=== PATIENT | male | born 1980 | race Caucasian/White ===

== ENCOUNTER 2019-02-22 23:43 | Emergency (ER) | payer SELFPAY ==
--- NOTE | 2019-02-22 00:01 | DI.RAD_ITS ---
EXAM: XR FINGER LT INDEX INDICATION: r/o FB at tip of finger. COMPARISON: No exams were available for comparison TECHNIQUE: 2D digital imaging was performed. FINDINGS: No fracture or dislocation is seen. 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 IMPRESSION: Negative left index finger.
[2019-02-22 23:48] VITALS: BP 127/81; PULSE 69; RESP 16; TEMP 36.6; O2SAT 100
--- NOTE | 2019-02-22 23:59 | ED.GENADUL_ITS ---
Discharge Plan Disposition Patient Disposition: HOME Condition: Good Discharge Details Chief Complaint: Orthopedic Clinical Impression: Finger pain, left Primary Care Provider: Glen Thibodeaux ED Provider: Ambrose Santana Home Meds and New Rx's Prescriptions: New cephalexin [Keflex] 500 mg capsule 500 mg PO QID 7 Days Qty: 28 RF: 0 Discharge Instructions Instructions: Cellulitis (ED) Additional Instructions: At this time there is no evidence of foreign body on the x-ray or my ultrasound. There may be a very small subtle infection that is difficult to see at this time. Please take the antibiotic as directed. Please continue taking 800 mg of ibuprofen every 6 hours and 1000 mg of Tylenol every 6 hours. Avoid significant use of the finger for the next 2 to 3 days. If you notice any worsening of your symptoms, or any new symptoms such as redness or streaking coming up in your finger, pain in the rest of your finger with movement, vomiting, diarrhea, fever, chills, shortness of breath, chest pain, numbness, weakness, or fainting , please return immediately to the emergency department for reevaluation. Please follow up with your primary care provider as soon as possible for reassessment and reevaluation. As always, it was a pleasure participating in your medical care today. Referrals: Glen Thibodeaux [Primary Care Provider] - Medical Decision Making This is a pleasant 38-year-old male whose tetanus is up-to-date, who is right-hand dominant who presents today for left finger pain on the index finger at the distal tip. 3 days ago he states that he stabbed it with a sharp metal cynthia, cause mild pain then which is been increasing. He has been taking ibuprofen with no improvement. He denies redness warmth or drainage. Pain is made worse with movement or palpation. No red flags of fever or chills. Exam demonstrates a notably tender but otherwise unremarkable left finger with no significant swelling when compared to the right. No significant redness, no drainage, no evidence of neurovascular changes or compromise. Bedside portable limited ultrasound demonstrates a very very tiny fluid collection less than a millimeter in size at the distal tip of the flexor tendon on the palmar surface. No evidence of color flow for that small fluid collection. He does demonstrate normal color flow and blood flow for the surrounding areas in the rest of the finger. No evidence of vascular compromise. No foreign body could be detected on ultrasound. X-ray was performed which also shows no evidence of radiodense foreign body. The finger was anesthetized with 3 cc of 1% lidocaine without epinephrine, a 27-gauge needle was then inserted over the area of maximal fluid collection. There is no evidence of significant drainage discharge or purulence. Only a small amount of blood. Differential includes continued pain secondary to trauma, versus a small subacute infection cannot be visualized. No evidence of osteomyelitis. Out of an abundance of precaution we will start the patient on Keflex, recommend continued NSAID therapy. With no clinical evidence of flexor tenosynovitis I see no indication for further surgical or imaging management at this time. Discussed red flags which return as well as the importance of close follow-up. I have extensively reviewed the treatment plan and discharge instructions with the patient. I have addressed all patient concerns at this time. The patient was made aware of what symptoms to monitor for that would warrant a return to the emergency department. Discussed the plan with the patient, they demonstrate verbal understanding and agreement with our assessment and plan at this time. HPI General Date/Time Provider Initiated Documentation: 02/22/19 23:47 . HPI Narrative: Is a 38-year-old male with no past medical history is tetanus was updated 2 years ago when he had a laceration at that time. He presents today for pain in the distal tip of his left nondominant hand. Patient states that 3 days ago he had a vision care associate testing bulb, and the metallic part of it was sharp and poking to his distal tip of his left index finger. He pulled it out, he states that there was no retained foreign body. Since then he has had mild to moderate pain in the area which is slightly been worsening. He describes a pressure-like sensation on the palmar pad at the distal tip. He denies fever or chills. Pain is worsened with flexion however the pain is localized to the distal tip and not the proximal components of the flexor tendon. He denies any other components at this time. He denies any drainage or discharge. No other complaints at this time. Related Data Home Medications Medication Instructions Recorded Confirmed cephalexin [Keflex] 500 mg PO QID 7 Days #28 cap 02/23/19 Previous Rx's Medication Instructions Recorded cephalexin [Keflex] 500 mg PO QID 7 Days #28 cap 02/23/19 Allergies Allergy/AdvReac Type Severity Reaction Status Date / Time No Known Allergies Allergy Verified 02/22/19 23:53 General Stated Complaint: Orthopedic ELYSSA: 4 Review of Systems All systems reviewed & are unremarkable except as noted in HPI and below PFSH Social History Smoking/Tobacco Use Status: Current every day Alcohol Intake: never Substance use type: does not use Do you feel safe in your relationship?: Yes Exam Narrative Exam Narrative: 1.Const: Well-nourished, Well-developed, appearing stated age 2.Eyes: PERRL, no conjunctival injection, and symmetrical lids. 3.ENT: Atraumatic external nose and ears. Moist MM. Neck: Symmetric, trachea midline, No thyromegaly. 4.CVS: +S1/S2, No murmurs or gallops. Peripheral pulses 2+ and equal in all extremities. Brisk capillary refill in all extremities. 5.RESP: Unlabored respiratory effort. Clear to auscultation bilaterally. No wheezes rales or rhonchi 6.GI: Soft, Nontender/Nondistended, No hepatosplenomegaly. No guarding or rebound. 7.MSK: Normocephalic/Atraumatic, Extremities w/o deformity. No cyanosis or clubbing, Normal movement of all extremities. Distal tip of the left index finger demonstrates no significant erythema. It is notably tender to palpation. There is no evidence of drainage or discharge. It is not supervisor cold rolling comparison to the other fingertips. It is of equivalent temperature. Capillary refill is brisk. No subungual hematoma. No significant pain with flexion or extension of all aspects of the index finger except for mild localized pain at the palmar tip. No evidence of flexor tenosynovitis. Limited bedside ultrasound shows no evidence of large fluid pocket over there does appear to be a very small thin line of fluid over the distal tip that demonstrates no evidence of vascular flow on color. 8.Skin: Warm, Dry. No rashes or lesions. 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 Sensation grossly intact, no focal neurologic deficits. 10.Psych: (AAO) x3. Appropriate mood and affect Course Vital Signs Vital signs: Vital Signs Temperature 36.6 C 02/22/19 23:48 Pulse 69 02/22/19 23:48 Respiratory Rate 16 02/22/19 23:48 Blood Pressure 127/81 02/22/19 23:48 Pulse Oximetry 100 02/22/19 23:48 Temperature 36.6 C 02/22/19 23:48 Temperature Source Skin 02/22/19 23:48 Pulse 69 02/22/19 23:48 Respiratory Rate 16 02/22/19 23:48 Respiratory Effort 02/22/19 23:48 Blood Pressure 127/81 02/22/19 23:48 Pulse Oximetry 100 02/22/19 23:48 Oxygen Delivery Method Room Air 02/22/19 23:48 Oxygen Flow Rate 0 02/22/19 23:48
[2019-02-23] MEDS: Lidocaine 1% Pres-Free 5 ML VIAL (00:01)
--- NOTE | 2019-02-23 00:12 | DI.VRAD_ITS ---
PROCEDURE INFORMATION: Exam: XR Left Finger(s) Exam date and time: 02/22/2019 12:03 AM Age: 38 years old Clinical indication: Injury or trauma; Injury history: R/O fb in finger after laceration while splitting wood and pain in tip of finger; Initial encounter; Left; Index finger; Injury date: 02/20/19 TECHNIQUE: Imaging protocol: XR Left fingers. Views: Minimum 2 views. COMPARISON: CR LEFT THUMB 08/20/2017 4:28 PM FINDINGS: Bones/joints: No acute fracture. Joint spaces are maintained. Soft tissues: No radiodense foreign body. IMPRESSION: No radiodense foreign body. Dictated and Authenticated by: Tee Kilgore MD. Ordering:IZZY Boggs MD
[2019-02-23] MEDS: Cephalexin 500 MG CAP PO (00:16)
[2019-02-23 00:19] VITALS: BP 127/81; PULSE 69; RESP 16; O2SAT 100
== END 2019-02-23 00:15 | disposition home or self-care (01) ==
PROVIDERS: Emergency Provider Student in an Organized Health Care Education/Training Program; PCP Family Medicine
DX: S61.231A Puncture wound without foreign body of left index finger without damage to nail, initial encounter (principal); W26.8XXA Contact with other sharp object(s), not elsewhere classified, initial encounter
CPT/HCPCS: 10160; 73140

== ENCOUNTER 2019-12-26 19:54 | Emergency (ER) | payer SELFPAY ==
--- NOTE | 2019-12-26 19:54 | W.ED.GENAD ---
Discharge Plan Disposition Patient Disposition: HOME Condition: Good Discharge Details Clinical Impression: Tinea corporis Primary Care Provider: Glen Thibodeaux ED Provider: Vianey Pollard Home Meds and New Rx's Prescriptions: No Action No Known Home Meds RF: 0 Discharge Instructions Instructions: Betamethasone/Clotrimazole (On the skin), Skin Yeast Infection (ED) Additional Instructions: Your exam is most consistent with a ringworm infection. This is a fungal infection. Please apply the clotrimazole ointment twice daily for the next 1-3 weeks depending on improvement of symptoms. Please call your primary care tomorrow to schedule follow-up appointment in 1 week for reevaluation. If you develop fever/chills, pain, redness or other new/worsening symptoms please seek care urgently once again. You may use Benadryl or other antihistamine to help with itching. Referrals: Glen Thibodeaux [Primary Care Provider] - Medical Decision Making Patient is a 42-year-old male presents with chief complaint of rash. He reports that he has been developing this rash over the past week. Reports that it has been itchy. Denies any fevers or chills. Denies any rash elsewhere. No known contacts with similar. No known new exposures. On exam, patient has multiple rings, raised erythematous lesion with dry center. Exam is most consistent with a tinea corporis. We will treat with clotrimazole. Advise follow-up with primary care in 1 week for reevaluation. Return precautions were discussed. All her questions and concerns were addressed. [facility] General Mode of arrival: ambulatory. Date/Time Provider Initiated Documentation: 12/26/19 19:54. Limitations to Documentation: no limitations. Information obtained by: patient and RN notes reviewed. History of Present Illness 38 year old M presents to the emergency department with the chief complaint of rash, described as mild, Quality is described as other (itchy), and is localized to the chest and back. Patient started experiencing this day(s) (4) and it has been constant. No relieving factors improve symptom(s), No exacerbating factors reported . Patient notes no other symptoms.. Patient did receive the following treatments prior to arrival, none Related Data Home Medications Medication Instructions Recorded Confirmed Unknown [No Known Home Meds] 12/26/19 12/26/19 Allergies Allergy/AdvReac Type Severity Reaction Status Date / Time No Known Allergies Allergy Verified 02/22/19 23:53 General ELYSSA: 4 Review of Systems Constitutional Constitutional: Reports as per HPI, Denies chills and Denies fever(s) Musculoskeletal Musculoskeletal: Reports as per HPI Integumentary/Breasts Skin/Breast: Reports as per HPI Neurologic Neurologic: Reports as per HPI, Denies sensory deficit and Denies paresthesias PFS Social History Smoking/Tobacco Use Status: Current every day Smoking risk assessment performed?: Yes Alcohol Intake: never Substance use type: does not use Do you feel safe in your relationship?: Yes Exam Const General: cooperative, healthy appearing, comfortable, no acute distress and well developed Nutritional Appearance: average body habitus and well nourished Orientation: alert and awake Resp Effort & Inspection: normal respiratory effort, able to speak in complete sentences and no respiratory distress Cardio Rate: regular rate Rhythm: regular rhythm Skin Rashes: rashes noted (Multiple scattered raised erythematous circular lesions,defined ring, dry c) and other (noted on chest and back. Consistent with tinea) Neuro General: patient alert and patient awake Cognition: normal cognition Speech: speech normal Gait: normal gait Sensory Exam: no sensory deficits noted Psych Appearance: grossly normal and well kempt Mental Status: mental status grossly normal Speech and Movement: speech and movement normal
[2019-12-26 19:58] VITALS: BP 128/64; PULSE 82; RESP 16; TEMP 36.8; O2SAT 96
[2019-12-26] MEDS: Clotrimazole 1% 15 GM TUBE TP (20:34)
== END 2019-12-26 20:41 | disposition home or self-care (01) ==
PROVIDERS: Emergency Provider Physician Assistant; PCP Family Medicine
DX: B35.4 Tinea corporis (principal)
CPT/HCPCS: 99283

== ENCOUNTER 2021-11-05 15:01 | Emergency (ER) | payer SELFPAY ==
[2021-11-05 15:28] VITALS: BP 109/63; PULSE 54; RESP 16; TEMP 36.4; O2SAT 99
--- NOTE | 2021-11-05 15:45 | DI.RAD_ITS ---
Exam(s) XR ANKLE RT COMPLETE EXAM: XR ANKLE RT COMPLETE CLINICAL HISTORY: twist/pain. TECHNIQUE: 2D digital imaging was performed. COMPARISON: CR LEFT FOOT COMPLETE from 02/18/2017 FINDINGS: 3 views There is a triangular bone density measuring 11 x 6 millimeters immediately adjacent to the medial ma lleolus. This may represent an avulsion fracture at this level. However, there does not appear to b e overlying soft tissue swelling. There is a corticated round accessory ossicle subjacent to the lateral malleolus. No swelling around the lateral malleolus. The talar dome appears unremarkable. Posterior malleolus unremarkable. No widening of the ankle mortise. Subtalar joint unremarkable. There is no osseous tarsal coalition. IMPRESSION: There is an 11 x 6 millimeter calcific density adjacent to the medial malleolus. This may be an avul yong fragment. However, there does not appear to be soft tissue swelling in this region. Correlatio n with site of tenderness is recommended. DATA REPOSITORY: RADIATION DOSE DELIVERED:
--- NOTE | 2021-11-05 15:58 | ED.GENADUL_ITS ---
Discharge Plan Disposition Patient Disposition: HOME Condition: Stable Discharge Details Clinical Impression: Injury of ankle, right Primary Care Provider: Glen Thibodeaux ED Provider: Berry Shell Home Meds and New Rx's Prescriptions: No Action No Known Home Meds Discharge Instructions Additional Instructions: X-ray reveals what is to be a previous small avulsion fracture but this is not consistent today with where your swelling and pain is. As we discussed we have opted to treat you for a suspected fracture to be thorough. Wear walking boot and use crutches until reevaluation with orthopedics. Rest, elevate, cool compresses every 2 hours for 20 minutes. [id number] Tylenol and/or Motrin as directed for discomfort. Please contact the orthopedic office tomorrow to discuss your ER visit and need for outpatient reevaluation Referrals: Franc Lake MD [ [facility] STAFF PHYSICIAN] - Medical Decision Making This is a 40-year-old gentleman who reports chronic right ankle pain status post an injury nearly 20 years ago. He states that he was wearing tall boots earlier today, stepped awkwardly, injuring his ankle. He was seen at another ER, no x- ray was performed, and they told him he had an ankle sprain. He is concerned that there is a more serious injury. He has not taken any medication for his symptoms. X-ray reveals There is an 11 x 6 millimeter calcific density adjacent to the medial malleolus. This may be an avulsion fragment. However, there does not appear to be soft tissue swelling in this region. Correlation with site of tenderness is recommended. Clinically this is not consistent where he is tender. Patient does report a rather significant ankle injury 20 years ago. I do question if this small avulsion may be from this. Discussed x-ray findings with patient. Will treat with a tall walking boot and crutches and referred to orthopedics to be cleared to return to normal activity as while there is low suspicion this certainly could be an acute fracture. Standard discharge and return precautions were provided. Patient understands, is agreeable to this plan, and has no additional questions or concerns upon discharge. This documentation was generated using [email or web address] system, please disregard any oddities of phrase or misspellings. Medical Records Medical records reviewed: Yes I reviewed the patient's medical records. Imaging Data Radiologic Study: Attestation: I personally reviewed and interpreted this imaging study as follows: Imaging: X-Ray Radiologist's impression: Exam(s) XR ANKLE RT COMPLETE EXAM: XR ANKLE RT COMPLETE CLINICAL HISTORY: twist/pain. TECHNIQUE: 2D digital imaging was performed. COMPARISON: CR LEFT FOOT COMPLETE from 02/18/2017 FINDINGS: 3 views There is a triangular bone density measuring 11 x 6 millimeters immediately adjacent to the medial malleolus. This may represent an avulsion fracture at this level. However, there does not appear to be overlying soft tissue swelling. There is a corticated round accessory ossicle subjacent to the lateral malleolus. No swelling around the lateral malleolus. The talar dome appears unremarkable. Posterior malleolus unremarkable. No widening of the ankle mortise. Subtalar joint unremarkable. There is no osseous tarsal coalition. IMPRESSION: There is an 11 x 6 millimeter calcific density adjacent to the medial malleolus. This may be an avulsion fragment. However, there does not appear to be soft tissue swelling in this region. Correlation with site of tenderness is recommended. HPI General Mode of arrival: ambulatory . Date/Time Provider Initiated Documentation: 11/05/21 15:51 . Limitations to Documentation: no limitations . Information obtained by: patient . History of Present Illness 40 year old M presents to the emergency department with the chief complaint of R ankle pain, described as severe, with intensity rated at 8. Quality is described as aching, and is localized to the right and lower extremity. Patient reports no radiation. Patient started experiencing this hour(s) (5) and it has been constant. No relieving factors improve symptom(s), Movement worsens symptoms . Patient notes no other symptoms.. Patient did receive the following treatments prior to arrival, none Related Data Home Medications Medication Instructions Recorded Confirmed Unknown [No Known Home Meds] 12/26/19 11/05/21 Allergies Allergy/AdvReac Type Severity Reaction Status Date / Time No Known Allergies Allergy Verified 11/05/21 15:33 General Stated Complaint: Orthopedic ELYSSA: 4 Review of Systems Constitutional Constitutional: Denies weakness Musculoskeletal Musculoskeletal: Reports arthralgias, Denies numbness, Reports stiffness and Reports tingling Integumentary/Breasts Skin/Breast: Denies erythema Neurologic Neurologic: Denies numbness, Reports tingling and Denies weakness PFSH All Active Problems (Updated 11/05/21 @ 17:03 by JAMARCUS Henson) Injury of ankle, right (Acute) Social History Smoking/Tobacco Use Status: Current every day Smoking risk assessment performed?: Yes Alcohol Intake: never Drug use: Never Substance use type: does not use Do you feel safe at home: Yes Do you feel safe in your relationship?: Yes Exam Const General: cooperative, healthy appearing, comfortable and no acute distress Orientation: alert and awake [facility] Head: normal to inspection, normocephalic and atraumatic Eyes Conjunctivae: conjunctivae normal Neck Neck: normal visual inspection, full ROM, trachea midline and supple Resp Effort & Inspection: normal respiratory effort and able to speak in complete sentences Cardio Rate: regular rate Rhythm: regular rhythm Skin General skin exam: no rashes or lesions noted Neuro General: patient alert, patient awake, moves all extremities and no focal motor deficits Cognition: normal cognition Speech: speech normal Gait: antalgic Motor: muscle tone normal throughout Sensory Exam: no sensory deficits noted Extrem General: full ROM and capillary refill normal Ankle/foot/toe images: 1. Tenderness, mild swelling, ecchymosis. No deformity. Neuro, vascular, tendon intact. Skin intact. Normal capillary refill. Psych Appearance: grossly normal Mental Status: mental status grossly normal Course Vital Signs Vital signs: Vital Signs Temperature 36.4 C L 11/05/21 15:28 Pulse 54 L 11/05/21 15:28 Respiratory Rate 16 11/05/21 15:28 Blood Pressure 109/63 11/05/21 15:28 Pulse Oximetry 99 11/05/21 15:28 Temperature 36.4 C L 11/05/21 15:28 Pulse 54 L 11/05/21 15:28 Respiratory Rate 16 11/05/21 15:28 Respiratory Effort 11/05/21 15:33 Blood Pressure 109/63 11/05/21 15:28 Pulse Oximetry 99 11/05/21 15:28 Pain Level 9 11/05/21 15:28
== END 2021-11-05 17:21 | disposition home or self-care (01) ==
PROVIDERS: Emergency Provider Physician Assistant; PCP Family Medicine
DX: S99.911A Unspecified injury of right ankle, initial encounter (principal); X50.9XXA Other and unspecified overexertion or strenuous movements or postures, initial encounter; F17.200 Nicotine dependence, unspecified, uncomplicated
CPT/HCPCS: 99283; 73610; 99282

== ENCOUNTER 2023-03-31 22:06 | Emergency (ER) | payer MEDICAID, SELFPAY ==
[2023-03-31 22:08] VITALS: BP 128/76; PULSE 73; RESP 18; TEMP 36.3; O2SAT 99
[2023-03-31] MEDS: Tetracaine 0.5% 4 ML BTL (22:12)
[2023-03-31] MEDS: Fluorescein STRIPS 100/BOX 1 MG (22:12)
[2023-03-31] MEDS: Erythromycin Ophth Oint 3.5 GM TUBE (22:16)
--- NOTE | 2023-03-31 22:21 | W.ED.GENAD ---
HPI General Date/Time Provider Initiated Documentation: 03/31/23 22:13. HPI Narrative: This is a very pleasant 42-year-old male with a past medical history of ITP, who presents today for evaluation of eye pain. Patient does not wear contact lenses. Patient states that he was working with his truck earlier today, and something got in both of his eyes, the left worse than the right. This was at about 10 AM this morning 12 hours ago. He has since had a foreign body sensation in both eyes. He denies any vision changes otherwise. Light makes it worse. He denies any metal grinding or significant hammering. He was not wearing eye protection. 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 Tetanus status is unknown, but expected to be at the very least greater than 5 years ago. No other complaints at this time. Related Data Home Medications Medication Instructions Recorded Confirmed Unknown [No Known Home Meds] 12/26/19 11/05/21 Allergies Allergy/AdvReac Type Severity Reaction Status Date / Time No Known Allergies Allergy Verified 11/05/21 15:33 General Stated Complaint: EyeProblem ELYSSA: 4 Review of Systems All systems reviewed & are unremarkable except as noted in HPI and below Exam Narrative Exam Narrative: 1.Const: Well-nourished, Well-developed, appearing stated age 2.Eyes: PERRL, no conjunctival injection, and symmetrical lids. Left eye: Peripheral vision intact. No nystagmus. Fundoscopic exam shows normal optic discs and normal vasculature. No clinical signs of septal/orbital cellulitis, no redness around the eye, no proptosis. No hyphema, no signs of trauma around the eye, no periorbital emphysema. No sluggishness of the pupil. No ophthalmoplegia. No afferent pupillary defect. Fluorescein exam is positive for corneal abrasion in the midline superior slightly medial and inferior aspect. No evidence of foreign body or rust ring, negative Rogelio sign. Visual acuity as documented in chart. Right eye: Peripheral vision intact. No nystagmus. Fundoscopic exam shows normal optic discs and normal vasculature. No clinical signs of septal/orbital cellulitis, no redness around the eye, no proptosis. No hyphema, no signs of trauma around the eye, no periorbital emphysema. No sluggishness of the pupil. No ophthalmoplegia. No afferent pupillary defect. Fluorescein exam is positive for corneal abrasion which is notably minimal and located around the superior lateral aspect, negative Rogelio sign. Visual acuity as documented in chart. 3.ENT: Atraumatic external nose and ears. Moist MM. Neck: Symmetric, trachea midline, No thyromegaly. 4.CVS: +S1/S2, No murmurs or gallops. Peripheral pulses 2+ and equal in all extremities. Brisk capillary refill in all extremities. 5.RESP: Unlabored respiratory effort. Clear to auscultation bilaterally. No wheezes rales or rhonchi 6.GI: Soft, Nontender/Nondistended, No hepatosplenomegaly. No guarding or rebound. 7.MSK: Normocephalic/Atraumatic, Extremities w/o deformity or ttp No cyanosis or clubbing, Normal movement of all extremities 8.Skin: Warm, Dry. No rashes or lesions. 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 Sensation grossly intact, no focal neurologic deficits. 10.Psych: (AAO) x3. Appropriate mood and affect Course Vital Signs Vital signs: Vital Signs Temperature 36.3 C L 03/31/23 22:08 Pulse 73 03/31/23 22:08 Respiratory Rate 18 03/31/23 22:08 Blood Pressure 128/76 03/31/23 22:08 Pulse Oximetry 99 03/31/23 22:08 Temperature 36.3 C L 03/31/23 22:08 Pulse 73 03/31/23 22:08 Respiratory Rate 18 03/31/23 22:08 Respiratory Effort Normal 03/31/23 22:10 Blood Pressure 128/76 03/31/23 22:08 Pulse Oximetry 99 03/31/23 22:08 Pain Level 10 03/31/23 22:08 Medical Decision Making This is a very pleasant 42-year-old male with a past medical history of ITP, who presents today for evaluation of eye pain. Patient does not wear contact lenses. Patient states that he was working with his truck earlier today, and something got in both of his eyes, the left worse than the right. This was at about 10 AM this morning 12 hours ago. He has since had a foreign body sensation in both eyes. He denies any vision changes otherwise. Light makes it worse. He denies any metal grinding or significant hammering. He was not wearing eye protection. 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 Tetanus status is unknown, but expected to be at the very least greater than 5 years ago. No other complaints at this time. Exam demonstrates well-appearing male, vision intact. He demonstrates corneal abrasion on the left eye which is midline just superior medial and inferior to the pupil. Eversion of the lid shows no foreign body, no rust ring, no other abnormality. Evaluation of the right eye demonstrates a very small corneal abrasion on the lateral mid aspect. Eversion of the lid shows no other abnormality. Exam otherwise benign. Erythromycin ointment was applied, pain well-controlled. Visual acuity at baseline. Patient will be discharged home with outpatient follow-up with Dr. Olmstead. Will also update his tetanus status as he was working with rest, and he has not had an update in quite some time. I have extensively reviewed the treatment plan and discharge instructions with the patient and their family. I have addressed all patient concerns at this time. The patient and family was made aware of what symptoms to monitor for that would warrant a return to the emergency department. Discussed the plan with the patient and family, they demonstrate verbal understanding and agreement with our assessment and plan at this time. The documentation in this chart was dictated using [employer] dictation software. Please excuse any dictation errors. Quality:SDOH Health Related Social Needs: No Data to Display PFSH All Active Problems Bilateral corneal abrasions (Acute) Social History Smoking/Tobacco Use Status: Current every day Smoking risk assessment performed?: Yes Alcohol Intake: never Drug use: Never Substance use type: does not use Do you feel safe at home: Yes Do you feel safe in your relationship?: Yes Discharge Plan Disposition Patient Disposition: Home Condition: Good Discharge Details Clinical Impression: Bilateral corneal abrasions Primary Care Provider: None,None ED Provider: Ambrose Santana Home Meds and New Rx's Prescriptions: No Action No Known Home Meds Discharge Instructions Instructions: Corneal Abrasion (ED) Additional Instructions: At this time you have a mild to moderate corneal abrasion in the left eye and a very mild corneal abrasion in the right. Thankfully at this time I am not able to visualize any rust rings or foreign bodies. Please apply the erythromycin ointment every 6-8 hours as needed. Please follow-up closely with your director emergency services. If you notice any worsening of your symptoms, or any new symptoms such as vomiting, diarrhea, fever, chills, shortness of breath, chest pain, numbness, weakness, or fainting , please return immediately to the emergency department for reevaluation. Please follow up with your primary care provider as soon as possible for reassessment and reevaluation. As always, it was a pleasure participating in your medical care today. Referrals: [facility], [place] [Outside]
[2023-03-31] MEDS: Tetanus & Diphtheria Tox,ADULT 0.5 ML VIAL IM (22:30)
== END 2023-03-31 22:34 | disposition home or self-care (01) ==
LOC: ER 22:36
PROVIDERS: Emergency Provider Student in an Organized Health Care Education/Training Program
DX: S05.01XA Injury of conjunctiva and corneal abrasion without foreign body, right eye, initial encounter (principal); S05.02XA Injury of conjunctiva and corneal abrasion without foreign body, left eye, initial encounter; Y93.89 Activity, other specified; Y92.812 Truck as the place of occurrence of the external cause; W44.8XXA Other foreign body entering into or through a natural orifice, initial encounter
CPT/HCPCS: 90471; 90714; 99282; 99283

== ENCOUNTER 2023-04-27 23:43 | Emergency (ER) | payer MEDICAID, SELFPAY ==
--- NOTE | 2023-04-27 00:32 | DI.RAD_ITS ---
Exam(s) XR FOOT LT COMPLETE EXAM: XR FOOT LT COMPLETE CLINICAL HISTORY: burn welding btw 2nd-3rd digits, eval FB. TECHNIQUE: 2D digital imaging was performed. COMPARISON: No exams were available for comparison FINDINGS: 3 views There is no evidence of acute fracture nor diastasis of the Lisfranc joint. Bone density normal. No osseous lesions. No pes planus. There is a radiopaque metallic foreign body evident in the somewhat swollen appearing soft tissues be tween the proximal phalanges of the 2nd and 3rd toes in the web space. This measures approximately 2 millimeters. No osseous erosions nor evidence of osteomyelitis. No degenerative changes. IMPRESSION: Metallic foreign body in the somewhat swollen web space between the 2nd and 3rd toes as described abo ve. Correlation with any purposely placed skin marker at this level is recommended. DATA REPOSITORY: RADIATION DOSE DELIVERED:
[2023-04-27 23:48] VITALS: BP 122/66; PULSE 82; RESP 16; TEMP 36.7; O2SAT 98
[2023-04-27 23:53] VITALS: BP 122/66; PULSE 82; RESP 18; TEMP 36.8; O2SAT 98
--- NOTE | 2023-04-27 23:53 | ED.GENADUL_ITS ---
Discharge Plan Disposition Patient Disposition: Home Condition: Good Discharge Details Chief Complaint: GenMedical Clinical Impression: Foreign body (FB) in soft tissue, Burn Primary Care Provider: Unknown,Unknown ED Provider: Ana Mckeon Home Meds and New Rx's Prescriptions: No Action No Known Home Meds Discharge Instructions Instructions: Second-Degree Burn (ED) Additional Instructions: Change the dressing after 48 hours. You can use Bactrian and non-stick pads on the burn. Tylenol & ibupfrofen over the counter for pain. 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 Call your primary care doctor tomorrow to schedule an appointment to be seen within the next 3 days to follow up on your visit here and to assess your wound. Return to the emergency department for new or worsening symptoms including worsening pain or redness, thick white or green discharge, swelling in your toes, inability to walk, or if you have any other concerns. HPI General Mode of arrival: ambulatory . Date/Time Provider Initiated Documentation: 04/27/23 23:50 . Limitations to Documentation: no limitations . Information obtained by: patient . HPI Narrative: 42yo M presenting with burn to left foot. Was welding on Thursday, material fell onto his left shoe and burned through shoe and sock. Burn between 2nd and 3rd toes on left foot. Has been using gauze at home, however wound is not healing and pain has been increasing. Can't sleep tonight. No other chino, no pain elsewhere. He is otherwise in his usual state of health with no fevers, chills, rash, numbness, tingling, or weakness. Related Data Home Medications Medication Instructions Recorded Confirmed Unknown [No Known Home Meds] 12/26/19 04/27/23 Allergies Allergy/AdvReac Type Severity Reaction Status Date / Time No Known Allergies Allergy Verified 04/27/23 23:54 General Stated Complaint: GenMedical ELYSSA: 3 Review of Systems Narrative: see HPI Exam Narrative Exam Narrative: General: Alert, well appearing, well nourished, in no acute distress. Head: Normocephalic, atraumatic Neck: Trachea midline, ?Neck supple. Resp: No respiratory distress. Speaking in full sentences. Abd: ?Non-distended. Extremities: ?No deformities.? No peripheral edema. Left foot with wound between 2nd and 3rd digits, no purlent discharge present. Subjectively diminished sensation throughout entirety of 3rd digit, otherwise sensation intact throughout left foot. Motion intact, limited 2/t pain. Brisk capillary refill all digits. Neurologic: GCS 15. ? Moves all extremities freely against gravity Course Vital Signs Vital signs: Vital Signs Temperature 36.7 C 04/27/23 23:48 Pulse 82 04/27/23 23:48 Respiratory Rate 16 04/27/23 23:48 Blood Pressure 122/66 04/27/23 23:48 Pulse Oximetry 98 04/27/23 23:48 Temperature 36.7 C 04/27/23 23:48 Temperature Source Temporal Artery Scan 04/27/23 23:48 Pulse 82 04/27/23 23:48 Respiratory Rate 16 04/27/23 23:48 Blood Pressure 122/66 04/27/23 23:48 Pulse Oximetry 98 04/27/23 23:48 Pain Level 10 04/27/23 23:48 Procedures Burn Care/Dressing LLE: Debridement Necessary: Yes Type of Dressing: non-stick and other (iodoform) Neurovascular Functions Intact After Dressing Application: Yes Patient Tolerated Procedure: well Foreign Body Removal Time Out Performed: yes Site: left and foot Description of foreign body: other (welding ember) Technique: removal with forceps Confirmed by:: direct visualization Complications: none Post-procedure exam: awake, alert Neurovascular: no change from pre-procedure Medical Decision Making 42yo M presenting with burn to left foot. Was welding on Thursday, material fell onto his left shoe and burned through shoe and sock. Burn between 2nd and 3rd toes on left foot, worsening pain. Vital signs reassuring, on exam he has a wound between the 2nd and 3rd digits of his left foot. Subjectively diminished sensation to 3rd digit, otherwise neurointact. Brisk capillary refill all digits. XR ordered to eval for foreign body and independently reviewed; small foreign body in 3rd digit (radiology read pending). Last tetanus ~ 1 month ago after corneal abrasion, will not give again today. Tylenol/toradol for pain and wound anesthetized with topical lidocaine. Area irrigated with copious amounts of normal saline and lightly debrided with gauze; small ~0.5cm circular open areas on both the 2nd and 3rd digits, intact deflated blister at base between toes. Small metallic foreign body removed from 3rd digit with 2% lidocaine injection and forceps. Idoform dressing placed. No history of diabetes, no indication of wound infection; would not do antibiotics at this time. Advised PCP followup and wound care at home. Discharged home; discharge instructions and return precautions were reviewed with patient who verbalized understanding. All questions were answered and he is in full agreement with the plan. Quality:[facility] Health Related Social Needs: No Data to Display PFSH All Active Problems (Updated 04/28/23 @ 00:50 by Ana Mckeon MD) Burn (Acute) Foreign body (FB) in soft tissue (Acute) Bilateral corneal abrasions (Acute) Social History Smoking/Tobacco Use Status: Current every day Smoking risk assessment performed?: Yes Alcohol Intake: never Drug use: Never Substance use type: does not use Do you feel safe at home: Yes Do you feel safe in your relationship?: Yes
[2023-04-27] MEDS: Lidocaine 2% Jelly 6 ML SYR (23:58)
[2023-04-28] MEDS: Acetaminophen 500 MG TAB 1000 MG PO (00:06)
[2023-04-28] MEDS: Ketorolac 15 MG/ML VIAL IM (00:08)
--- NOTE | 2023-04-28 00:53 | DI.VRAD_ITS ---
PROCEDURE INFORMATION: Exam: XR Left Foot Exam date and time: 04/28/2023 12:22 AM Age: 42 years old Clinical indication: Injury or trauma; Other: Burned well welding; Foot; Left; Injury date: 04/24/23; Patient HX: Burn welding btw 2nd-3rd digits, eval for fb TECHNIQUE: Imaging protocol: Radiologic exam of the left foot. Views: 3 or more views. COMPARISON: CR LEFT FOOT COMPLETE 02/18/2017 6:19 PM FINDINGS: Bones/joints: There are hammertoe deformities of the 2nd through 5th toes. Bone mineralization is age-appropriate. There is no evidence of fracture. No evidence of dislocation. The joint spaces are adequately preserved; no significant degenerative narrowing and no bony erosion seen. Soft tissues: Mild soft tissue swelling between the 2nd and 3rd digits present. Metallic marker present between the 2 toes but no evidence of radiopaque foreign body clinical correlation recommended. No radiopaque foreign body present. IMPRESSION: 1. No acute osseous abnormality. 2. Mild soft tissue swelling between the 2nd and 3rd digits present. 3. Metallic marker present between the 2 toes but no evidence of radiopaque foreign body clinical correlation recommended. Dictated and Authenticated by: Redd Ricketts MD. Ordering:PELON Perez MD
[2023-04-28 01:42] VITALS: BP 120/80; PULSE 78; RESP 16; TEMP 36.7; O2SAT 98
== END 2023-04-28 01:42 | disposition home or self-care (01) ==
PROVIDERS: Emergency Provider Student in an Organized Health Care Education/Training Program
DX: T25.222A Burn of second degree of left foot, initial encounter; X18.XXXA Contact with other hot metals, initial encounter; M79.5 Residual foreign body in soft tissue
CPT/HCPCS: 16020; 96372; 99284; 73630; J1885; J2003